=== PATIENT | male | born 1960 | race Caucasian/White ===

== ENCOUNTER → 2018-05-19 | Outpatient (CLI) | payer BC ==
[~2018-05-19] MED LIST: ANORO; ASMANEX110 MC1; ASPIR 8181 MG PO; ATORVASTATIN CA20 MG PO; CEFUROXIME125 MG/5 M; DULERA 200 MCG/13 GM; LASIX40 MG PO; LEVAQUIN500 MG PO; LISINOPRIL10 MG PO; METOPROLOL SUCC50 MG PO; MONTELUKAST SOD10 MG PO; PREDNISONE20 MG PO; Z ULORIC PO
--- NOTE | 2018-05-19 16:53 | Diagnostic Imaging Report ---
EXAMINATION: CHEST 2 VIEWS INDICATION: Bronchitis. COMPARISON: Report from chest radiograph on 07/08/2015, although the images are not available for review at the time of this dictation. FINDINGS: TUBES and LINES: None. LUNGS: Lungs are well inflated. No evidence of pneumonia or pulmonary edema. Mild bronchial wall thickening. PLEURA: No pleural effusion or pneumothorax. HEART AND MEDIASTINUM: The cardiomediastinal silhouette is unremarkable. There are atherosclerotic calcifications within the aorta. BONES AND SOFT TISSUES: Status post median sternotomy. The superior most sternal wire is broken. UPPER ABDOMEN: No free air under the diaphragm. IMPRESSION: No evidence of pneumonia. Mild bronchial wall thickening, which may reflect clinical history of bronchitis. Status post median sternotomy. The superior most sternal wire is broken, of unclear chronicity. Signed by: Dr. Deidra Parker MD on 05/19/2018 4:50 PM
--- NOTE | 2018-05-19 16:58 | Diagnostic Imaging Report ---
Exam: Right hand radiographs - 3 views; left hand radiographs - 3 views. History: Trigger finger. Comparison: None. Findings: Right hand: No evidence of acute fracture, malalignment, or soft tissue abnormality. There are mild first carpometacarpal and radiocarpal degenerative changes. Left hand: No evidence of acute fracture or malalignment. There is a flexion deformity of the small finger at the PIP joint. There is mild surrounding soft tissue edema. There is also soft tissue edema along the ulnar aspect of the hand. There are mild first carpometacarpal and radiocarpal degenerative changes. Impression: No acute osseous abnormality. Flexion deformity of the left small finger PIP joint with associated soft tissue edema in the small finger and ulnar hand. Signed by: Dr. Deidra Parker MD on 05/19/2018 4:55 PM
== END ==
LOC: RAD 15:32
PROVIDERS: ATTEND Internal Medicine
DX: J41.0 Simple chronic bronchitis (principal); M65.331 Trigger finger, right middle finger
CPT/HCPCS: 71046

== ENCOUNTER → 2019-09-19 | Outpatient (CLI) | payer OTHER ==
[~2019-09-19] MED LIST changes: +IOPAMIDOL 370 MG/ML 200 ML INFUS..BTL INJ ONE; +SODIUM CHLORIDE 0.9% 50ML 50 ML ONE
[2019-09-19 11:15] LABS: BLOOD UREA NITROGEN 19 mg/dL (7-26); BUN/CREATININE RATIO 21 (6-25); CREATININE, SERUM 0.92 mg/dL (0.72-1.25); EST GLOMERULAR FILTRATION RATE > 60 ML/MIN (60-)
--- NOTE | 2019-09-19 11:59 | Diagnostic Imaging Report ---
EXAM: CT Chest WITH intravenous contrast 09/19/2019 11:30 AM INDICATION: Left upper chest wall swelling, lump COMPARISON: Chest radiograph 05/19/2018 TECHNIQUE: Chest was scanned utilizing a multidetector helical scanner from the lung apex through the level of the adrenal glands after administration of IV contrast. Coronal and sagittal reformations were obtained. Routine protocol was performed. IV CONTRAST: 100mL Isovue 370 RADIATION DOSE: Total DLP: 571 mGy*cm. Dose modulation, iterative reconstruction, and/or weight based adjustment of the mA/kV was utilized to reduce the radiation dose to as low as reasonably achievable. COMPLICATIONS: None FINDINGS: LINES/ TUBES: None. LUNGS AND AIRWAYS: The central airways are patent. No focal consolidation or pulmonary edema. Airways are normal. PLEURA: The pleural spaces are clear. HEART AND MEDIASTINUM: The thyroid gland is normal. No supraclavicular, axillary, mediastinal, or hilar lymphadenopathy. The heart is at the upper limits of normal for size. No pericardial effusion. Atherosclerotic calcifications of the coronary arteries, aorta, and proximal great vessels. No central pulmonary embolus. Postoperative findings of prior CABG. UPPER ABDOMEN: Postoperative findings of prior fundoplication. Diverticulosis. BONES: No acute osseous injury. No suspicious lytic or blastic lesions. Mild degenerative changes of the visualized spine. Sternotomy wires in place. SOFT TISSUES: Unremarkable. Specifically, no CT findings to correlate with provided history of left chest wall lump or swelling. IMPRESSION: No CT findings to correlate with provided history of left chest wall lump or swelling. No focal pneumonia or pulmonary edema. Diverticulosis. Signed by: Cris Milligan MD on 09/19/2019 11:55 AM
== END ==
LOC: CT 10:28
PROVIDERS: ATTEND Internal Medicine
DX: R22.2 Localized swelling, mass and lump, trunk (principal)
CPT/HCPCS: 36415; 71260; 82565; 84520; Q9967

== ENCOUNTER → 2019-12-30 | Outpatient (CLI) | payer OTHER ==
[~2019-12-30] MED LIST changes: +CELEBREX100 MG PO; +CENTRUM SILVER1 EAC3 PO; +CITRACAL + D31 EACH PO; -IOPAMIDOL 370 MG/ML 200 ML INFUS..BTL INJ ONE; +PROVENTIL HFA6.7 GM INH; -SODIUM CHLORIDE 0.9% 50ML 50 ML ONE; +SYNJARDY XR 251 EACH PO; +VITAMIN B122500 MCG PO; +VITAMIN D3250 MC1 PO
== END ==
LOC: RAD 11:04
PROVIDERS: ATTEND Internal Medicine
DX: Z01.818 Encounter for other preprocedural examination (principal)
CPT/HCPCS: 71046

== ENCOUNTER → 2020-01-20 | Day surgery (SDC) | payer OTHER ==
[~2020-01-20] MED LIST changes: +ACETAMINOPHEN 1000 MG/100 ML 100 ML IV ONE; +BUPIVACAINE 0.25% 30ML SDV ONE; +DESFLURANE 240 ML BTL INH ONE; +DEXAMETHASONE SOD PHOS INJ 4 MG/ML VIAL ONE; +FENTANYL CITRATE/PF 100MCG/2 ML INJ ONE; +HYDROCODONE/APAP 7.5MG-325MG 1 EA TAB ONE; +LABETALOL HCL 5 MG/ML 20ML VIAL ONE; +LIDOCAINE HCL 2% JELLY 5 ML TUBE ONE; +LIDOCAINE HCL 2% LOCAL INJ 5 ML SDV VIAL INJ ONE; +ONDANSETRON HCL INJ 2MG/ML 2ML 2 MG/ML VIAL ONE; +PROPOFOL IV EMULSION 10 MG/ML 20 ML VIAL ONE; +ROCURONIUM BROMIDE 10 MG/ML 5ML VIAL IV ONE; +SUGAMMADEX SODIUM 200 MG/2 ML VIAL IV ONE
[2020-01-20 17:30] VITALS: BP 138/75
--- NOTE | 2020-01-20 18:10 | Operative Report ---
DATE OF PROCEDURE: 01/20/2020 SURGEON: Kwaku Hare MD PREOPERATIVE DIAGNOSES: Epigastric ventral hernia and mid abdominal ventral hernia. POSTOPERATIVE DIAGNOSES: Epigastric ventral hernia and mid abdominal ventral hernia. OPERATION PERFORMED: Repair of epigastric hernia with mesh and repair of mid abdominal ventral hernia with mesh. SEAM CHECKER: KENIA Joshi. ANESTHESIA: General. COMPLICATIONS: None. ESTIMATED BLOOD LOSS: Minimal. PROCEDURE IN DETAIL: With the patient lying in bed in the supine position under good general endotracheal anesthesia, the abdomen was prepped with Betadine solution and draped in the usual manner. A midline incision was made in the epigastric area to excise the old upper abdominal scar, carried down through the subcutaneous tissue and immediately, the hernia sac was encountered. The hernia sac was then dissected in all directions and fascia was cleared all the way around the hernia defect. The hernia sac was then opened and the excess of the hernia sac was resected. The omentum was contained within it was then reduced back to the intra-abdominal cavity. The subfascial space was then cleared and a medium-sized Ventralex patch was placed intra-abdominally and deployed without any difficulty and the defect was then closed transversely anchoring the mesh on the way out giving us a satisfactory repair without any tension. The fascia was infiltrated with Marcaine. The subcutaneous tissue was approximated with 3-0 Vicryl and the skin was closed with clips. A similar incision was then made in the infraumbilical region and immediately, the hernia sac was encountered. The hernia sac was then from the umbilicus and the hernia sac was opened. There was omentum incarcerated within the hernia, which was then totally and completely reduced back to the intra-abdominal cavity and the excess of the hernia sac was resected. After this was done, a medium-sized Ventralex patch was then placed through the defect intra-abdominally and deployed without any problems. The fascia between the 2 hernia defects appeared to be intact and the defect was then closed transversely using interrupted sutures of 0 Ethibond anchoring the mesh with the closure. This gave us a satisfactory repair without any tension. The whole area was then thoroughly irrigated. Perfect hemostasis was ascertained. The fascia was then infiltrated with 0.25% Marcaine solution. The umbilicus was tacked back down to the midline fascia with 3-0 Vicryl. Subcutaneous tissue was approximated with 3-0 Vicryl and the skin was closed with interrupted vertical mattress sutures of 3-0 silk. Dressing was applied. The sponge, lap, and needle counts were correct. The patient tolerated the procedure well and returned to the recovery room in stable condition. MD MAYCOL Martinez/ACE /[id number]
== END | disposition home or self-care (01) ==
LOC: OR 11:44
PROVIDERS: ATTEND Surgery
DX: K43.6 Other and unspecified ventral hernia with obstruction, without gangrene (principal); K43.9 Ventral hernia without obstruction or gangrene; J44.9 Chronic obstructive pulmonary disease, unspecified; I25.810 Atherosclerosis of coronary artery bypass graft(s) without angina pectoris; I10 Essential (primary) hypertension; K21.9 Gastro-esophageal reflux disease without esophagitis; J45.909 Unspecified asthma, uncomplicated; F17.200 Nicotine dependence, unspecified, uncomplicated; Z88.8 Allergy status to other drugs, medicaments and biological substances; Z01.812 Encounter for preprocedural laboratory examination; Z20.828 Contact with and (suspected) exposure to other viral communicable diseases; Z79.82 Long term (current) use of aspirin; Z86.19 Personal history of other infectious and parasitic diseases; Z95.1 Presence of aortocoronary bypass graft
CPT/HCPCS: 36415; 49560; 49561; 49568 ×2; 82948; C1781; J0131; J1100; J2001 ×2; J2405; J2704; J3010; J3490; U0002

== ENCOUNTER → 2020-02-23 | Outpatient (CLI) | payer OTHER ==
[~2020-02-23] MED LIST changes: -ACETAMINOPHEN 1000 MG/100 ML 100 ML IV ONE; -BUPIVACAINE 0.25% 30ML SDV ONE; -DESFLURANE 240 ML BTL INH ONE; -DEXAMETHASONE SOD PHOS INJ 4 MG/ML VIAL ONE; -FENTANYL CITRATE/PF 100MCG/2 ML INJ ONE; -HYDROCODONE/APAP 7.5MG-325MG 1 EA TAB ONE; -LABETALOL HCL 5 MG/ML 20ML VIAL ONE; -LIDOCAINE HCL 2% JELLY 5 ML TUBE ONE; -LIDOCAINE HCL 2% LOCAL INJ 5 ML SDV VIAL INJ ONE; -ONDANSETRON HCL INJ 2MG/ML 2ML 2 MG/ML VIAL ONE; -PROPOFOL IV EMULSION 10 MG/ML 20 ML VIAL ONE; -ROCURONIUM BROMIDE 10 MG/ML 5ML VIAL IV ONE; -SUGAMMADEX SODIUM 200 MG/2 ML VIAL IV ONE
== END ==
LOC: RAD 11:29
DX: M25.561 Pain in right knee (principal)

== ENCOUNTER → 2020-03-26 | Day surgery (SDC) | payer OTHER ==
[2020-03-22 12:00] LABS: BASOPHILS # (AUTO) 0.1 (0.0-0.1); EOSINOPHILS # (AUTO) 0.6 (0.0-0.4); EOSINOPHILS % 6.2 % (0.0-6.0); HEMOGLOBIN 16.8 g/dL (14.0-18.0); LYMPHOCYTES # (AUTO) 2.4 (1.0-3.2); LYMPHOCYTES % 24.7 % (18.0-39.1); MEAN CORPUSCULAR HGB CONC 31.7 g/dL (31-35); MEAN CORPUSCULAR VOLUME 88.3 fL (81-99); MONOCYTES # (AUTO) 0.9 (0.2-0.8); MONOCYTES % 8.7 % (4.4-11.3); NEUTROPHILS # (AUTO) 5.8 (2.1-6.9); NEUTROPHILS % 59.1 % (38.7-80.0); PLATELET COUNT 270 x10e3/uL (140-360); RED CELL DISTRIBUTION WIDTH 13.9 % (11.7-14.4)
[2020-03-22 12:21] LABS: INR 0.95; PROTHROMBIN TIME 13.2 seconds (11.9-14.5)
[2020-03-22 12:30] LABS: ALBUMIN 4.3 g/dL (3.5-5.0); ALBUMIN/GLOBULIN RATIO 1.2 (0.8-2.0); ANION GAP 20.1 mmol/L (8-16); CALCIUM 9.7 mg/dL (8.4-10.2); CREATININE, SERUM 1.45 mg/dL (0.72-1.25); POTASSIUM 5.1 mmol/L (3.5-5.1)
[~2020-03-26] VITALS: Ht 185.4 cm; Wt 106.6 kg
[2020-03-26] VITALS (7 sets, daily range): BP systolic 106–127; BP diastolic 73–91
[~2020-03-26] MED LIST changes: +ASPIRIN 325 MG TAB ONE; +ELIQUIS5 MG PO; +FENTANYL CITRATE/PF 100MCG/2 ML INJ ONE; +FUROSEMIDE40 MG PO; +HEPARIN SOD/SOD CHLORIDE 2,000 ML ONE; +IOPAMIDOL 370 MG/ML 200 ML INFUS..BTL INJ ONE; +LIDOCAINE HCL 2% LOCAL 20 ML VIAL ONE; +METOPROLOL SUCC25 MG PO; +MIDAZOLAM HCL 2 MG/2 ML VIAL ONE; +SODIUM CHLORIDE 0.9% 1000ML 1,000 ML ONE; +TICAGRELOR 90 MG TABLET ONE
== END | disposition home or self-care (01) ==
LOC: CATH LAB 08:07
PROVIDERS: ATTEND Internal Medicine Cardiovascular Disease
DX: I25.708 Atherosclerosis of coronary artery bypass graft(s), unspecified, with other forms of angina pectoris (principal); I11.0 Hypertensive heart disease with heart failure; I50.22 Chronic systolic (congestive) heart failure; I70.211 Atherosclerosis of native arteries of extremities with intermittent claudication, right leg; I71.9 Aortic aneurysm of unspecified site, without rupture; E78.5 Hyperlipidemia, unspecified; I95.9 Hypotension, unspecified; E11.9 Type 2 diabetes mellitus without complications; Z88.8 Allergy status to other drugs, medicaments and biological substances; Z01.812 Encounter for preprocedural laboratory examination; Z20.822 Contact with and (suspected) exposure to COVID-19; Z79.82 Long term (current) use of aspirin; Z79.84 Long term (current) use of oral hypoglycemic drugs; Z79.02 Long term (current) use of antithrombotics/antiplatelets; Z68.31 Body mass index [BMI] 31.0-31.9, adult; Z95.1 Presence of aortocoronary bypass graft; Z82.49 Family history of ischemic heart disease and other diseases of the circulatory system; Z83.3 Family history of diabetes mellitus
CPT/HCPCS: 36415; 80053; 85025; 85610; 92928; 93458; 93459; 99152; 99153; C1725; C1760; C1769; C1874; C1887; J2001; J2250; J3010; J7030; Q9967; U0002

== ENCOUNTER → 2020-05-01 | Day surgery (SDC) | payer OTHER ==
[~2020-05-01] MED LIST changes: -ASPIRIN 325 MG TAB ONE; +BENZOCAINE 20% SPR 60 ML CAN ONE; +CLOPIDOGREL75 MG PO; -HEPARIN SOD/SOD CHLORIDE 2,000 ML ONE; -IOPAMIDOL 370 MG/ML 200 ML INFUS..BTL INJ ONE; -LIDOCAINE HCL 2% LOCAL 20 ML VIAL ONE; +LIDOCAINE HCL 2% LOCAL INJ 5 ML SDV VIAL INJ ONE; +PROPOFOL IV EMULSION 10 MG/ML 20 ML VIAL ONE; +QUNOL PO; -TICAGRELOR 90 MG TABLET ONE
[2020-05-01 06:50] VITALS: BP 99/69
[2020-05-01 08:06] VITALS: BP 96/73
[2020-05-01 08:20] VITALS: BP 91/63
[2020-05-01 08:35] VITALS: BP 91/71
== END | disposition home or self-care (01) ==
LOC: CATH LAB 06:22
PROVIDERS: ATTEND Psychiatry & Neurology Neurology
DX: I48.91 Unspecified atrial fibrillation (principal); I34.0 Nonrheumatic mitral (valve) insufficiency; I25.810 Atherosclerosis of coronary artery bypass graft(s) without angina pectoris; I11.0 Hypertensive heart disease with heart failure; I50.22 Chronic systolic (congestive) heart failure; I70.211 Atherosclerosis of native arteries of extremities with intermittent claudication, right leg; I71.9 Aortic aneurysm of unspecified site, without rupture; I95.9 Hypotension, unspecified; E78.5 Hyperlipidemia, unspecified; E11.9 Type 2 diabetes mellitus without complications; J44.9 Chronic obstructive pulmonary disease, unspecified; M10.9 Gout, unspecified; F17.210 Nicotine dependence, cigarettes, uncomplicated; Z88.8 Allergy status to other drugs, medicaments and biological substances; Z79.82 Long term (current) use of aspirin; Z68.31 Body mass index [BMI] 31.0-31.9, adult; Z95.1 Presence of aortocoronary bypass graft; Z86.19 Personal history of other infectious and parasitic diseases
CPT/HCPCS: 93312; 93320; 93325; J2001; J2250; J2704; J3010; J7030; 93307

== ENCOUNTER → 2020-06-26 | Day surgery (SDC) | payer OTHER ==
[2020-06-21 10:40] LABS: BASOPHILS # (AUTO) 0.1 (0.0-0.1); BASOPHILS % 0.9 % (0.0-1.0); EOSINOPHILS # (AUTO) 0.6 (0.0-0.4); EOSINOPHILS % 6.5 % (0.0-6.0); HEMATOCRIT 54.7 % (38.2-49.6); HEMOGLOBIN 17.6 g/dL (14.0-18.0); LYMPHOCYTES # (AUTO) 2.6 (1.0-3.2); LYMPHOCYTES % 28.1 % (18.0-39.1); MEAN CORPUSCULAR HGB CONC 32.2 g/dL (31-35); MEAN CORPUSCULAR VOLUME 83.9 fL (81-99); MONOCYTES # (AUTO) 0.8 (0.2-0.8); MONOCYTES % 9.2 % (4.4-11.3); NEUTROPHILS % 54.8 % (38.7-80.0); PLATELET COUNT 229 x10e3/uL (140-360); RED BLOOD COUNT 6.52 x10e6/uL (4.3-5.7); RED CELL DISTRIBUTION WIDTH 18.3 % (11.7-14.4)
[2020-06-21 11:03] LABS: INR 2.14; PROTHROMBIN TIME 24.7 seconds (11.9-14.5)
[2020-06-21 11:17] LABS: ALANINE AMINOTRANSFERASE 17 IU/L (0-55); ALBUMIN 4.3 g/dL (3.5-5.0); ALBUMIN/GLOBULIN RATIO 1.2 (0.8-2.0); ALKALINE PHOSPHATASE 88 IU/L (40-150); ANION GAP 18.5 mmol/L (8-16); BLOOD UREA NITROGEN 29 mg/dL (7-26); BUN/CREATININE RATIO 25 (6-25); CALCIUM 9.7 mg/dL (8.4-10.2); CARBON DIOXIDE 27 mmol/L (22-29); CHLORIDE 98 mmol/L (98-107); CREATININE, SERUM 1.18 mg/dL (0.72-1.25); EST GLOMERULAR FILTRATION RATE > 60 ML/MIN (60-); GLUCOSE 180 mg/dL (74-118); POTASSIUM 4.5 mmol/L (3.5-5.1); SODIUM 139 mmol/L (136-145)
[~2020-06-26] VITALS: Ht 185.4 cm; Wt 108.9 kg
[~2020-06-26] MED LIST changes: -FENTANYL CITRATE/PF 100MCG/2 ML INJ ONE; -LIDOCAINE HCL 2% LOCAL INJ 5 ML SDV VIAL INJ ONE; +POVIDONE IODINE 0.05% 0.05 % ML PO ONE; +WARFARIN SODIUM3 MG PO
[2020-06-26 06:45] VITALS: BP 116/95
[2020-06-26 08:34] VITALS: BP 119/93
[2020-06-26 08:50] VITALS: BP 81/53
[2020-06-26 09:05] VITALS: BP 109/59
== END | disposition home or self-care (01) ==
LOC: CATH LAB 06:30
PROVIDERS: ATTEND Internal Medicine Cardiovascular Disease
DX: I48.91 Unspecified atrial fibrillation (principal); I34.0 Nonrheumatic mitral (valve) insufficiency; J44.9 Chronic obstructive pulmonary disease, unspecified; I10 Essential (primary) hypertension; E78.5 Hyperlipidemia, unspecified; I25.708 Atherosclerosis of coronary artery bypass graft(s), unspecified, with other forms of angina pectoris; Z95.1 Presence of aortocoronary bypass graft; I73.9 Peripheral vascular disease, unspecified; I71.9 Aortic aneurysm of unspecified site, without rupture; I11.0 Hypertensive heart disease with heart failure; I50.22 Chronic systolic (congestive) heart failure; I95.9 Hypotension, unspecified; Z88.8 Allergy status to other drugs, medicaments and biological substances; Z01.812 Encounter for preprocedural laboratory examination; Z20.822 Contact with and (suspected) exposure to COVID-19; Z79.01 Long term (current) use of anticoagulants; Z79.82 Long term (current) use of aspirin; Z79.84 Long term (current) use of oral hypoglycemic drugs; Z68.31 Body mass index [BMI] 31.0-31.9, adult; Z82.49 Family history of ischemic heart disease and other diseases of the circulatory system; Z83.3 Family history of diabetes mellitus
CPT/HCPCS: 36415; 80053; 85025; 85610; 93312; 93320; 93325; J2250; J2704; J7030; U0002; 93307

== ENCOUNTER 2020-08-17 12:24 | Emergency (ER) | payer OTHER ==
[~2020-08-17] VITALS: Ht 185.4 cm; Wt 108.9 kg
[~2020-08-17 12:24] MED LIST changes: -BENZOCAINE 20% SPR 60 ML CAN ONE; -MIDAZOLAM HCL 2 MG/2 ML VIAL ONE; -POVIDONE IODINE 0.05% 0.05 % ML PO ONE; -PROPOFOL IV EMULSION 10 MG/ML 20 ML VIAL ONE; -SODIUM CHLORIDE 0.9% 1000ML 1,000 ML ONE
[2020-08-17 13:44] LABS: BASOPHILS # (AUTO) 0.1 (0.0-0.1); BASOPHILS % 0.8 % (0.0-1.0); EOSINOPHILS # (AUTO) 0.6 (0.0-0.4); EOSINOPHILS % 6.1 % (0.0-6.0); HEMOGLOBIN 17.1 g/dL (14.0-18.0); LYMPHOCYTES # (AUTO) 2.4 (1.0-3.2); LYMPHOCYTES % 26.2 % (18.0-39.1); MEAN CORPUSCULAR HEMOGLOBIN 27.1 pg (28-32); MEAN CORPUSCULAR HGB CONC 31.7 g/dL (31-35); MEAN CORPUSCULAR VOLUME 85.6 fL (81-99); MONOCYTES # (AUTO) 0.7 (0.2-0.8); MONOCYTES % 7.9 % (4.4-11.3); NEUTROPHILS # (AUTO) 5.3 (2.1-6.9); NEUTROPHILS % 58.7 % (38.7-80.0); PLATELET COUNT 230 x10e3/uL (140-360); RED BLOOD COUNT 6.31 x10e6/uL (4.3-5.7); RED CELL DISTRIBUTION WIDTH 16.7 % (11.7-14.4)
[2020-08-17 14:06] LABS: ALBUMIN 4.3 g/dL (3.5-5.0); ALBUMIN/GLOBULIN RATIO 1.1 (0.8-2.0); ANION GAP 16.7 mmol/L (8-16); CALCIUM 9.8 mg/dL (8.4-10.2); CREATININE, SERUM 1.09 mg/dL (0.72-1.25); POTASSIUM 4.7 mmol/L (3.5-5.1)
[2020-08-17 14:08] LABS: INR 2.81; PROTHROMBIN TIME 30.9 seconds (11.9-14.5)
[2020-08-17 14:09] LABS: PARTIAL THROMBOPLASTIN TIME 46.4 seconds (23.8-35.5)
[2020-08-17 14:17] LABS: CREATINE KINASE MB 0.8 ng/mL (0-5.0)
[2020-08-17] MEDS ORDERED: IOPAMIDOL 370 MG/ML 200 ML INFUS..BTL INJ ONE (16:43)
[2020-08-17] MEDS ORDERED: SODIUM CHLORIDE 0.9% 50ML 50 ML ONE (16:43)
[2020-08-17] MEDS ORDERED: ONDANSETRON HCL INJ 2MG/ML 2ML 2 MG/ML VIAL IV STA (17:47)
[2020-08-17] MEDS ORDERED: MORPHINE SULFATE INJ 4 MG/ML INJ 1ML IV STA (17:47)
== END 2020-08-17 19:24 | disposition home or self-care (01) ==
LOC: ER 13:13
DX: D68.9 Coagulation defect, unspecified (principal); R94.31 Abnormal electrocardiogram [ECG] [EKG]; Z79.01 Long term (current) use of anticoagulants; M10.9 Gout, unspecified
CPT/HCPCS: 36415; 71045; 74177; 80053; 82150; 82550; 82553; 83690; 83880; 84484; 85025; 85610; 85730; 93005; 99284; C9113; J2270; J2405; Q9967

== ENCOUNTER 2020-08-18 03:21 | Observation (INO) | payer OTHER ==
[~2020-08-18] VITALS: Ht 190.5 cm; Wt 108.9 kg
[2020-08-18] MEDS ORDERED: HYDROCODONE/APAP 10MG-325MG TAB PO ONE (04:00)
[2020-08-18 04:42] LABS: BASOPHILS # (AUTO) 0.1 (0.0-0.1); BASOPHILS % 0.6 % (0.0-1.0); EOSINOPHILS # (AUTO) 0.5 (0.0-0.4); HEMATOCRIT 51.6 % (38.2-49.6); HEMOGLOBIN 16.5 g/dL (14.0-18.0); LYMPHOCYTES # (AUTO) 1.9 (1.0-3.2); LYMPHOCYTES % 18.3 % (18.0-39.1); MEAN CORPUSCULAR HEMOGLOBIN 27.4 pg (28-32); MEAN CORPUSCULAR VOLUME 85.7 fL (81-99); MONOCYTES # (AUTO) 0.8 (0.2-0.8); MONOCYTES % 7.3 % (4.4-11.3); NEUTROPHILS # (AUTO) 7.3 (2.1-6.9); NEUTROPHILS % 68.4 % (38.7-80.0); PLATELET COUNT 220 x10e3/uL (140-360); RED BLOOD COUNT 6.02 x10e6/uL (4.3-5.7); RED CELL DISTRIBUTION WIDTH 15.9 % (11.7-14.4)
[2020-08-18 04:57] LABS: ALBUMIN 4.1 g/dL (3.5-5.0); ALBUMIN/GLOBULIN RATIO 1.1 (0.8-2.0); ANION GAP 16.5 mmol/L (8-16); CALCIUM 9.7 mg/dL (8.4-10.2); CREATININE, SERUM 1.06 mg/dL (0.72-1.25); POTASSIUM 4.5 mmol/L (3.5-5.1)
[2020-08-18 06:10] LABS: CHOL/HDL RATIO 4.3 (3.9-4.7)
[2020-08-18] MEDS ORDERED: ONDANSETRON HCL INJ 2MG/ML 2ML 2 MG/ML VIAL IV PRN (07:00)
[2020-08-18] MEDS: SODIUM CHLORIDE 0.9% 1000ML 1,000 ML IV SCH ×2 (07:00→16:29)
[2020-08-18] MEDS ORDERED: PROPOFOL IV EMULSION 10 MG/ML 20 ML VIAL ONE (09:48)
[2020-08-18] MEDS: HYDROCODONE/APAP 10MG-325MG TAB PO PRN ×3 (10:19→19:53)
[2020-08-18 11:00] VITALS: BP 139/90
[2020-08-18] MEDS ORDERED: ALBUTEROL SULFATE HFA 8GM INHALATION AEROSOL INH PRN (11:45)
[2020-08-18] MEDS ORDERED: MAGNESIUM HYDROXIDE 30 ML UDC PO ONE (12:00)
[2020-08-18] MEDS ORDERED: BISACODYL 5 MG TAB EC PO ONE (12:00)
[2020-08-18] MEDS ORDERED: FENTANYL CITRATE/PF 100MCG/2 ML INJ ONE (12:44)
[2020-08-18] MEDS ORDERED: MIDAZOLAM HCL 2 MG/2 ML VIAL ONE (12:44)
[2020-08-18 13:58] LABS: INR 1.76; PROTHROMBIN TIME 21.5 seconds (11.9-14.5)
[2020-08-18 16:40] LABS: CREATINE KINASE MB 1.1 ng/mL (0-5.0)
[2020-08-18] MEDS: FUROSEMIDE 40 MG TAB PO SCH (17:00)
[2020-08-18] MEDS: ATORVASTATIN 20 MG TAB PO SCH (19:53)
[2020-08-18 20:00] VITALS: BP 151/99
[2020-08-18 22:28] LABS: CREATINE KINASE MB 1.4 ng/mL (0-5.0)
[2020-08-19] VITALS (8 sets, daily range): BP systolic 113–137; BP diastolic 74–85
[2020-08-19] MEDS: HYDROCODONE/APAP 10MG-325MG TAB PO PRN ×2 (00:21→08:47)
[2020-08-19] MEDS: SODIUM CHLORIDE 0.9% 1000ML 1,000 ML IV SCH (03:21)
[2020-08-19 05:15] LABS: BASOPHILS % 0.4 % (0.0-1.0); EOSINOPHILS # (AUTO) 0.5 (0.0-0.4); EOSINOPHILS % 6.5 % (0.0-6.0); HEMATOCRIT 50.8 % (38.2-49.6); HEMOGLOBIN 16.1 g/dL (14.0-18.0); LYMPHOCYTES # (AUTO) 2.4 (1.0-3.2); LYMPHOCYTES % 29.4 % (18.0-39.1); MEAN CORPUSCULAR HEMOGLOBIN 27.4 pg (28-32); MEAN CORPUSCULAR HGB CONC 31.7 g/dL (31-35); MEAN CORPUSCULAR VOLUME 86.4 fL (81-99); MONOCYTES # (AUTO) 0.8 (0.2-0.8); MONOCYTES % 9.3 % (4.4-11.3); NEUTROPHILS # (AUTO) 4.5 (2.1-6.9); PLATELET COUNT 203 x10e3/uL (140-360); RED BLOOD COUNT 5.88 x10e6/uL (4.3-5.7); RED CELL DISTRIBUTION WIDTH 15.3 % (11.7-14.4)
[2020-08-19 05:38] LABS: ALBUMIN 3.7 g/dL (3.5-5.0); ANION GAP 16.3 mmol/L (8-16); CALCIUM 9.4 mg/dL (8.4-10.2); CREATININE, SERUM 0.97 mg/dL (0.72-1.25); POTASSIUM 5.3 mmol/L (3.5-5.1)
[2020-08-19 07:09] LABS: CREATINE KINASE 75 IU/L (30-200)
[2020-08-19] MEDS: FUROSEMIDE 40 MG TAB PO SCH ×2 (08:47→16:42)
[2020-08-19] MEDS: METOPROLOL SUCCINATE 25 MG TAB XL PO SCH (08:48)
[2020-08-19] MEDS: EMPAGLIFLOZIN PO SCH (08:53)
[2020-08-19] MEDS: METFORMIN HCL PO SCH (08:53)
[2020-08-19] MEDS ORDERED: SOD POLYSTYRENE SULFONATE SUSP 15 GM/60 ML BTL PO ONE (10:00)
[2020-08-19] MEDS: SENNOSIDES 8.6 MG TAB PO SCH ×2 (11:11→16:42)
[2020-08-19] MEDS ORDERED: BISACODYL 10 MG SUPP PR STA (18:08)
[2020-08-19] MEDS ORDERED: CITRATE OF MAGNESIA 300ML BOTTLE PO ONE (18:15)
[2020-08-19] MEDS: ATORVASTATIN 20 MG TAB PO SCH (21:00)
[2020-08-19] MEDS: LISINOPRIL 20 MG TAB PO SCH (21:00)
[2020-08-20 01:08] VITALS: BP 121/74
[2020-08-20 05:24] LABS: BASOPHILS # (AUTO) 0.1 (0.0-0.1); BASOPHILS % 0.6 % (0.0-1.0); EOSINOPHILS # (AUTO) 0.5 (0.0-0.4); EOSINOPHILS % 6.2 % (0.0-6.0); HEMATOCRIT 48.8 % (38.2-49.6); HEMOGLOBIN 15.9 g/dL (14.0-18.0); LYMPHOCYTES # (AUTO) 2.7 (1.0-3.2); LYMPHOCYTES % 34.6 % (18.0-39.1); MEAN CORPUSCULAR HEMOGLOBIN 27.4 pg (28-32); MEAN CORPUSCULAR HGB CONC 32.6 g/dL (31-35); MONOCYTES # (AUTO) 0.7 (0.2-0.8); MONOCYTES % 8.5 % (4.4-11.3); NEUTROPHILS # (AUTO) 3.9 (2.1-6.9); NEUTROPHILS % 49.8 % (38.7-80.0); PLATELET COUNT 193 x10e3/uL (140-360); RED BLOOD COUNT 5.81 x10e6/uL (4.3-5.7); RED CELL DISTRIBUTION WIDTH 15.1 % (11.7-14.4)
[2020-08-20 05:27] VITALS: BP 124/80
[2020-08-20 05:52] LABS: ANION GAP 14.9 mmol/L (8-16); CALCIUM 9.5 mg/dL (8.4-10.2); CREATININE, SERUM 0.88 mg/dL (0.72-1.25); POTASSIUM 3.9 mmol/L (3.5-5.1)
[2020-08-20 06:20] LABS: AMYLASE 90 U/L (25-125); LIPASE 75 U/L (8-78)
[2020-08-20] MEDS ORDERED: PANTOPRAZOLE SOD 40 MG TABEC PO SCH (07:30)
[2020-08-20 08:22] VITALS: BP 110/52
[2020-08-20 08:45] VITALS: BP 110/52
[2020-08-20] MEDS ORDERED: ONDANSETRON HCL 4 MG ORAL DISINTEGRATING TAB PO PRN (08:45)
[2020-08-20] MEDS: METOPROLOL SUCCINATE 25 MG TAB XL PO SCH (09:00)
[2020-08-20] MEDS: METFORMIN HCL PO SCH (09:00)
[2020-08-20] MEDS: FUROSEMIDE 40 MG TAB PO SCH (09:00)
[2020-08-20] MEDS: EMPAGLIFLOZIN PO SCH (09:00)
[2020-08-20] MEDS: SENNOSIDES 8.6 MG TAB PO SCH (09:00)
[2020-08-20] MEDS: LISINOPRIL 20 MG TAB PO SCH (09:00)
[2020-08-20 12:09] VITALS: BP 111/67
[2020-08-20] MEDS ORDERED: PROTONIX20 MG PO (12:42)
[2020-08-20] MEDS ORDERED: FEBUXOSTAT 80 MG TAB PO SCH (14:00)
== END 2020-08-20 13:20 | disposition home or self-care (01) ==
LOC: ER 03:35 → ERHOLD 06:50 → INTOOBSV 06:50 → MED/SURG2 10:50
PROVIDERS: ADMIT Internal Medicine; ATTEND Internal Medicine
DX: D13.2 Benign neoplasm of duodenum (principal); K22.70 Barrett's esophagus without dysplasia; K20.90 Esophagitis, unspecified without bleeding; K29.70 Gastritis, unspecified, without bleeding; E87.5 Hyperkalemia; K59.00 Constipation, unspecified; T45.515A Adverse effect of anticoagulants, initial encounter; Z72.89 Other problems related to lifestyle; Z72.0 Tobacco use; J42 Unspecified chronic bronchitis; I25.10 Atherosclerotic heart disease of native coronary artery without angina pectoris; Z95.5 Presence of coronary angioplasty implant and graft; I50.42 Chronic combined systolic (congestive) and diastolic (congestive) heart failure; Z95.1 Presence of aortocoronary bypass graft; Z98.890 Other specified postprocedural states
CPT/HCPCS: 36415 ×3; 43239; 74019; 80048; 80053 ×2; 80061; 82150 ×2; 82270; 82550 ×2; 82553 ×2; 83690 ×3; 84484 ×2; 85025 ×3; 85610; 86850; 86900; 88305; 88312; 99284; C9113 ×2; G0378 ×3; J2250; J2704; J3010; J7030 ×2; S0164

== ENCOUNTER → 2020-09-19 | Day surgery (SDC) | payer OTHER ==
[2020-09-17 13:28] LABS: BASOPHILS # (AUTO) 0.1 (0.0-0.1); BASOPHILS % 0.7 % (0.0-1.0); EOSINOPHILS # (AUTO) 0.3 (0.0-0.4); EOSINOPHILS % 3.7 % (0.0-6.0); HEMOGLOBIN 15.8 g/dL (14.0-18.0); LYMPHOCYTES # (AUTO) 2.5 (1.0-3.2); LYMPHOCYTES % 32.9 % (18.0-39.1); MEAN CORPUSCULAR HEMOGLOBIN 27.7 pg (28-32); MEAN CORPUSCULAR HGB CONC 31.6 g/dL (31-35); MEAN CORPUSCULAR VOLUME 87.6 fL (81-99); MONOCYTES # (AUTO) 0.7 (0.2-0.8); MONOCYTES % 8.8 % (4.4-11.3); NEUTROPHILS % 53.2 % (38.7-80.0); PLATELET COUNT 193 x10e3/uL (140-360); RED BLOOD COUNT 5.71 x10e6/uL (4.3-5.7); RED CELL DISTRIBUTION WIDTH 16.6 % (11.7-14.4)
[~2020-09-19] MED LIST changes: +LIDOCAINE HCL 2% LOCAL INJ 5 ML SDV VIAL INJ ONE; +PROPOFOL IV EMULSION 10 MG/ML 20 ML VIAL ONE; +PROTONIX20 MG PO
[2020-09-19 10:23] VITALS: BP 100/70
== END | disposition home or self-care (01) ==
LOC: OR 06:05
PROVIDERS: ATTEND Internal Medicine Gastroenterology
DX: D13.2 Benign neoplasm of duodenum (principal); K20.90 Esophagitis, unspecified without bleeding; K29.70 Gastritis, unspecified, without bleeding; K29.80 Duodenitis without bleeding; E11.9 Type 2 diabetes mellitus without complications; I10 Essential (primary) hypertension; I25.10 Atherosclerotic heart disease of native coronary artery without angina pectoris; I50.9 Heart failure, unspecified; E78.00 Pure hypercholesterolemia, unspecified; Z95.1 Presence of aortocoronary bypass graft; Z95.5 Presence of coronary angioplasty implant and graft; Z01.810 Encounter for preprocedural cardiovascular examination; Z01.812 Encounter for preprocedural laboratory examination; Z20.822 Contact with and (suspected) exposure to COVID-19
CPT/HCPCS: 36415 ×2; 43239; 43250; 82948; 85025; 93005; C9113; J2001; J2704; U0002; 43251

== ENCOUNTER → 2020-10-04 | Outpatient (CLI) | payer OTHER ==
[~2020-10-04] MED LIST changes: -LIDOCAINE HCL 2% LOCAL INJ 5 ML SDV VIAL INJ ONE; -PROPOFOL IV EMULSION 10 MG/ML 20 ML VIAL ONE
== END ==
LOC: RAD 12:32
PROVIDERS: ATTEND Internal Medicine
DX: Z01.818 Encounter for other preprocedural examination (principal)
CPT/HCPCS: 71046

== ENCOUNTER 2020-10-09 07:52 | Observation (INO) | payer OTHER ==
[~2020-10-09] VITALS: Ht 185.4 cm; Wt 111.6 kg
[2020-10-09] MEDS ORDERED: ROPIVACAINE 246.25 MG, EPINEPHRINE HCL 1:1000 1ML 0.5 MG, CLONIDINE HCL 0.08 MG in SODI... INJ ONE (08:00)
[2020-10-09] MEDS ORDERED: CELECOXIB 200 MG CAP ONE (09:11)
[2020-10-09] MEDS ORDERED: DEXAMETHASONE SOD PHOS 10 MG/1 ML VIAL ONE (09:11)
[2020-10-09] MEDS ORDERED: GABAPENTIN 300 MG CAP ONE (09:12)
[2020-10-09] MEDS ORDERED: SODIUM CHLORIDE 0.9% 50ML 100 ML ONE (09:12)
[2020-10-09] MEDS ORDERED: Vancomycin IV 1,000 MG ONE (09:31)
[2020-10-09] MEDS ORDERED: SODIUM CHLORIDE 0.9% 500ML 500 ML ONE (09:31)
[2020-10-09] MEDS ORDERED: TRANEXAMIC ACID 1,000 MG/10 ML ML ONE (09:31)
[2020-10-09] MEDS ORDERED: KETOROLAC TROMETHAMINE 30 MG/ML VIAL IV PRN (11:30)
[2020-10-09] MEDS ORDERED: SODIUM CHLORIDE 0.9% 1000ML 1,000 ML IV SCH (11:30)
[2020-10-09] MEDS ORDERED: DOCUSATE SODIUM 100 MG CAP PO PRN (11:30)
[2020-10-09] MEDS ORDERED: HYDROCODONE/APAP 5MG-325MG TAB PO PRN (11:30)
[2020-10-09] MEDS ORDERED: HYDROCODONE/APAP 7.5MG-325MG 1 EA TAB PO PRN (11:30)
[2020-10-09] MEDS ORDERED: DIPHENHYDRAMINE HCL INJ 50 MG/ML VIAL IV PRN (11:30)
[2020-10-09] MEDS ORDERED: ACETAMINOPHEN 650 MG SUPP PR PRN (11:30)
[2020-10-09] MEDS ORDERED: HYDROMORPHONE 1MG/1ML INJ ONE ×2 (12:02→12:12)
[2020-10-09] MEDS ORDERED: MORPHINE SULFATE INJ 4 MG/ML INJ 1ML ONE (12:38)
[2020-10-09] MEDS ORDERED: ACETAMINOPHEN 1000 MG/100 ML IV PRN (15:00)
[2020-10-09 15:22] VITALS: BP 117/74
[2020-10-09 15:26] VITALS: BP 119/71
[2020-10-09] MEDS ORDERED: ASPIRIN 325 MG TAB PO SCH (17:00)
[2020-10-09] MEDS ORDERED: CELECOXIB 100 MG CAP PO SCH (17:00)
[2020-10-09 17:58] VITALS: BP 119/71
[2020-10-09] MEDS ORDERED: Cefazolin 1 GM in SODIUM CHLORIDE 0.9% 50ML 50 ML IV SCH (18:00)
[2020-10-09 20:00] VITALS: BP 116/72
[2020-10-09] MEDS ORDERED: ZOLPIDEM TARTRATE 5 MG TAB PO PRN (21:00)
== END 2020-10-09 20:36 | disposition home or self-care (01) ==
LOC: OR 07:52 → PACU V 11:31 → MED/SURG 13:32
PROVIDERS: ADMIT Specialist; ATTEND Specialist
DX: M17.11 Unilateral primary osteoarthritis, right knee (principal); I11.0 Hypertensive heart disease with heart failure; I50.22 Chronic systolic (congestive) heart failure; I48.92 Unspecified atrial flutter; E78.5 Hyperlipidemia, unspecified; I70.211 Atherosclerosis of native arteries of extremities with intermittent claudication, right leg; Z20.822 Contact with and (suspected) exposure to COVID-19; Z01.818 Encounter for other preprocedural examination; I25.10 Atherosclerotic heart disease of native coronary artery without angina pectoris; Z95.1 Presence of aortocoronary bypass graft; E66.9 Obesity, unspecified; Z68.32 Body mass index [BMI] 32.0-32.9, adult; F17.210 Nicotine dependence, cigarettes, uncomplicated; I13.0 Hypertensive heart and chronic kidney disease with heart failure and stage 1 through stage 4 chronic kidney disease, or unspecified chronic kidney disease; N18.30 Chronic kidney disease, stage 3 unspecified; J44.9 Chronic obstructive pulmonary disease, unspecified
CPT/HCPCS: 27447; 36415; 73560; 82948; 86850; 86900; 86920; 97110; 97116; 97161; C1713 ×3; C1776 ×2; G0378; J0171; J0690; J1100; J1170; J2270; J2795; J3370; J7030; J7040; U0002

== ENCOUNTER 2020-11-13 14:59 | Outpatient (RCR) | payer OTHER | END 2020-11-15 | LOC: PT 14:59 | PROVIDERS: ATTEND Physician Assistant | DX: Z47.89 Encounter for other orthopedic aftercare (principal) ==

== ENCOUNTER 2020-12-14 14:50 | Outpatient (RCR) | payer OTHER | END 2020-12-16 | LOC: PT 14:50 | PROVIDERS: ATTEND Physician Assistant | DX: Z47.1 Aftercare following joint replacement surgery (principal); Z96.651 Presence of right artificial knee joint | CPT/HCPCS: 97139 ==

== ENCOUNTER 2021-01-02 15:00 | Outpatient (RCR) | payer OTHER | END 2021-01-15 | LOC: PT 15:00 | PROVIDERS: ATTEND Physician Assistant | DX: Z47.1 Aftercare following joint replacement surgery (principal); Z96.651 Presence of right artificial knee joint; M62.81 Muscle weakness (generalized); R26.2 Difficulty in walking, not elsewhere classified; M25.561 Pain in right knee; M25.661 Stiffness of right knee, not elsewhere classified | CPT/HCPCS: 97139 ==

== ENCOUNTER → 2021-02-12 | Day surgery (SDC) | payer OTHER ==
[2021-02-07 11:53] LABS: BASOPHILS # (AUTO) 0.1 (0.0-0.1); BASOPHILS % 0.8 % (0.0-1.0); EOSINOPHILS # (AUTO) 0.5 (0.0-0.4); EOSINOPHILS % 4.8 % (0.0-6.0); HEMATOCRIT 56.3 % (38.2-49.6); LYMPHOCYTES # (AUTO) 3.1 (1.0-3.2); LYMPHOCYTES % 29.6 % (18.0-39.1); MEAN CORPUSCULAR HEMOGLOBIN 28.6 pg (28-32); MEAN CORPUSCULAR VOLUME 89.5 fL (81-99); MONOCYTES % 9.5 % (4.4-11.3); NEUTROPHILS # (AUTO) 5.7 (2.1-6.9); NEUTROPHILS % 54.6 % (38.7-80.0); PLATELET COUNT 222 x10e3/uL (140-360); RED BLOOD COUNT 6.29 x10e6/uL (4.3-5.7)
[2021-02-07 12:07] LABS: INR 1.09
[2021-02-07 12:18] LABS: ALANINE AMINOTRANSFERASE 17 IU/L (0-55); ALBUMIN 4.4 g/dL (3.5-5.0); ALBUMIN/GLOBULIN RATIO 1.2 (0.8-2.0); ALKALINE PHOSPHATASE 92 IU/L (40-150); ANION GAP 19.5 mmol/L (8-16); BLOOD UREA NITROGEN 37 mg/dL (7-26); BUN/CREATININE RATIO 29 (6-25); CALCIUM 9.4 mg/dL (8.4-10.2); CARBON DIOXIDE 26 mmol/L (22-29); CHLORIDE 96 mmol/L (98-107); CHOL/HDL RATIO 4.7 (3.9-4.7); CHOLESTEROL 164 MD/DL (0-199); CREATININE, SERUM 1.29 mg/dL (0.72-1.25); EST GLOMERULAR FILTRATION RATE 57 ML/MIN (60-); GLUCOSE 202 mg/dL (74-118); HDL CHOLESTEROL 35 MG/DL (40-60); POTASSIUM 4.5 mmol/L (3.5-5.1); SODIUM 137 mmol/L (136-145); TRIGLYCERIDES 449 MG/DL (0-149)
[~2021-02-12] MED LIST changes: +BENZOCAINE 20% SPR 60 ML CAN ONE; +FENTANYL CITRATE/PF 100MCG/2 ML INJ ONE; +MIDAZOLAM HCL 2 MG/2 ML VIAL ONE; +PERFLUTREN LIPID MICROSPHERES 2 ML VIAL IV ONE; +POVIDONE IODINE 0.05% 0.05 % ML PO ONE; +PROPOFOL IV EMULSION 10 MG/ML 20 ML VIAL ONE; +SODIUM CHLORIDE 0.9% 1000ML 1,000 ML ONE
[2021-02-12 06:50] VITALS: BP 122/85
[2021-02-12 09:13] VITALS: BP 102/85
== END | disposition home or self-care (01) ==
LOC: CATH LAB 06:40
PROVIDERS: ATTEND Internal Medicine Cardiovascular Disease
DX: I48.91 Unspecified atrial fibrillation (principal); I34.0 Nonrheumatic mitral (valve) insufficiency; I25.810 Atherosclerosis of coronary artery bypass graft(s) without angina pectoris; I44.0 Atrioventricular block, first degree; E78.5 Hyperlipidemia, unspecified; J44.9 Chronic obstructive pulmonary disease, unspecified; E11.9 Type 2 diabetes mellitus without complications; E66.9 Obesity, unspecified; F17.210 Nicotine dependence, cigarettes, uncomplicated; Z88.8 Allergy status to other drugs, medicaments and biological substances; Z01.812 Encounter for preprocedural laboratory examination; Z20.822 Contact with and (suspected) exposure to COVID-19; Z79.84 Long term (current) use of oral hypoglycemic drugs; Z79.899 Other long term (current) drug therapy; Z99.81 Dependence on supplemental oxygen; Z68.32 Body mass index [BMI] 32.0-32.9, adult; Z95.1 Presence of aortocoronary bypass graft; Z95.810 Presence of automatic (implantable) cardiac defibrillator
CPT/HCPCS: 36415 ×2; 80053; 80061; 82948; 85025; 85610; 93312; 93320; 93325; J2250; J2704; J3010; J7030; Q9957; U0002; 93307

== ENCOUNTER → 2023-09-07 | Outpatient (REF) | payer OTHER ==
[~2023-09-07] MED LIST changes: +ASPIRIN EC81 MG PO; -BENZOCAINE 20% SPR 60 ML CAN ONE; +CENTRUM ADULTS1 EACH PO; -FENTANYL CITRATE/PF 100MCG/2 ML INJ ONE; +IOPAMIDOL 370 MG/ML 100 ML INFUS..BTL INJ ONE; +LYRICA150 MG PO; -MIDAZOLAM HCL 2 MG/2 ML VIAL ONE; -PERFLUTREN LIPID MICROSPHERES 2 ML VIAL IV ONE; -POVIDONE IODINE 0.05% 0.05 % ML PO ONE; -PROPOFOL IV EMULSION 10 MG/ML 20 ML VIAL ONE; -SODIUM CHLORIDE 0.9% 1000ML 1,000 ML ONE; +SODIUM CHLORIDE 0.9% 250ML 250 ML ONE; +TRESIBA FL100 UNIT/1 SC; +TRICOR145 MG PO; +VITAMIN D3125 MCG PO; +XARELTO20 MG PO
[2023-09-07 16:38] LABS: CREATININE, SERUM 1.95 mg/dL (0.72-1.25)
== END ==
LOC: CT 15:50
PROVIDERS: ATTEND Internal Medicine
DX: J94.9 Pleural condition, unspecified (principal); R91.1 Solitary pulmonary nodule
CPT/HCPCS: 36415; 71260; 82565; 84520; J7050; Q9967